=== PATIENT | male | born 1995 | race Caucasian/White ===

== ENCOUNTER 2017-09-27 17:16 | Emergency (ER) | payer MEDICAID ==
[~2017-09-27] VITALS: Ht 165.1 cm; Wt 61.8 kg
[2017-09-27] MEDS ORDERED: ACETAMINOPHEN 500 MG TABLET PO ONE (18:00)
[2017-09-27] MEDS ORDERED: IBUPROFEN 600 MG TABLET PO ONE (18:00)
[2017-09-27 20:38] VITALS: BP 110/74
[2017-09-27 21:08] LABS: INFLUENZA TYPE A NEGATIVE FOR TYPE A (NEGATIVE); INFLUENZA TYPE B POSITIVE FOR TYPE B (NEGATIVE)
== END 2017-09-27 21:17 | disposition home or self-care (01) ==
LOC: EMS 17:18
DX: J11.1 Influenza due to unidentified influenza virus with other respiratory manifestations (principal); R51 Headache; M79.1 Myalgia
CPT/HCPCS: 87804; 99284